=== PATIENT | female | born 1940 | race Caucasian/White ===

== ENCOUNTER → 2017-05-09 | Outpatient (CLI) | payer MEDICARE, BC ==
[2012-03-01 11:10] VITALS: BP 141/72
[~2017-05-09] MED LIST: AFLEXA340 MG; ASPIRIN 81M81 MG/TA2; CIPRO 500MG TA500 MG PO; MELOXICAM; MULTIPLE VITAMI1 CAP; ONDANSETRON4 M1 PO; PEPCID 20MG TAB20 MG PO
== END ==
LOC: LAB 11:09
DX: N30.00 Acute cystitis without hematuria (principal)

== ENCOUNTER → 2017-07-17 | Outpatient (CLI) | payer MEDICARE, BC ==
[2012-03-01 11:10] VITALS: BP 141/72
== END ==
LOC: MAMMO 12:50
DX: Z12.31 Encounter for screening mammogram for malignant neoplasm of breast (principal)
CPT/HCPCS: G0202

== ENCOUNTER → 2017-11-21 | Outpatient (CLI) | payer MEDICARE, BC ==
[2012-03-01 11:10] VITALS: BP 141/72
== END ==
LOC: LAB 10:52
DX: N39.0 Urinary tract infection, site not specified (principal)

== ENCOUNTER → 2018-01-10 | Outpatient (CLI) | payer MEDICARE, BC ==
[2012-03-01 11:10] VITALS: BP 141/72
[2018-01-10 12:34] LABS: URINE WBC >50 /hpf (0-3)
== END ==
LOC: LAB 11:47
PROVIDERS: Nurse Practitioner Family
DX: R30.0 Dysuria (principal); N39.0 Urinary tract infection, site not specified

== ENCOUNTER → 2018-10-08 | Outpatient (CLI) | payer MEDICARE, BC ==
[2012-03-01 11:10] VITALS: BP 141/72
== END ==
LOC: MAMMO 10:45
DX: Z12.31 Encounter for screening mammogram for malignant neoplasm of breast (principal)

== ENCOUNTER → 2018-12-30 | Outpatient (CLI) | payer MEDICARE, BC ==
[2012-03-01 11:10] VITALS: BP 141/72
== END ==
LOC: VAS 16:42 → RAD 16:45
DX: I08.3 Combined rheumatic disorders of mitral, aortic and tricuspid valves (principal)

== ENCOUNTER → 2019-02-03 | Outpatient (CLI) | payer MEDICARE, BC ==
[2012-03-01 11:10] VITALS: BP 141/72
== END ==
LOC: LAB 12:15
DX: R30.0 Dysuria (principal)

== ENCOUNTER → 2019-02-25 | Outpatient (CLI) | payer MEDICARE, BC ==
[2012-03-01 11:10] VITALS: BP 141/72
[2019-02-25 16:02] LABS: URINE APPEARANCE HAZY; URINE BILIRUBIN NEGATIVE (NEGATIVE); URINE BLOOD TRACE (NEGATIVE); URINE COLOR YELLOW; URINE GLUCOSE NEGATIVE (NEGATIVE); URINE KETONE NEGATIVE (NEGATIVE); URINE LEUKOCYTE ESTERASE NEGATIVE (NEGATIVE); URINE NITRATE NEGATIVE (NEGATIVE); URINE PROTEIN(semi-quant) NEGATIVE (NEGATIVE); URINE UROBILINOGEN NORMAL (NORMAL); URINE WBC 0-1 /hpf (0-3)
== END ==
LOC: LAB 15:34
PROVIDERS: Family Medicine
DX: R10.9 Unspecified abdominal pain (principal)

== ENCOUNTER → 2019-02-27 | Outpatient (CLI) | payer MEDICARE, BC ==
[2012-03-01 11:10] VITALS: BP 141/72
== END ==
LOC: RAD 09:00
DX: N39.0 Urinary tract infection, site not specified (principal)

== ENCOUNTER → 2019-05-26 | Day surgery (SDC) | payer MEDICARE, BC ==
[2012-03-01 11:10] VITALS: BP 141/72
== END ==
LOC: MSO 07:22
DX: R19.4 Change in bowel habit (principal); Z80.0 Family history of malignant neoplasm of digestive organs; I10 Essential (primary) hypertension; I05.9 Rheumatic mitral valve disease, unspecified; F41.9 Anxiety disorder, unspecified; M19.90 Unspecified osteoarthritis, unspecified site; Z79.899 Other long term (current) drug therapy; Z79.82 Long term (current) use of aspirin; Z85.038 Personal history of other malignant neoplasm of large intestine; Z85.9 Personal history of malignant neoplasm, unspecified
CPT/HCPCS: 00812; J2704; J7120

== ENCOUNTER → 2019-09-26 | Outpatient (CLI) | payer MEDICARE, BC ==
[~2019-09-26] VITALS: Ht 172.7 cm; Wt 73.2 kg
[~2019-09-26] MED LIST changes: +ALENDRONATE SODI5 MG PO; +ATIVAN0.5 MG PO; +HYDROCHLOROTH12.5 M2 PO; +ULTRAM50 M1 PO; +ZESTRIL5 M1 PO
[2019-09-26 12:04] VITALS: BP 152/82
== END ==
LOC: AMSURD 11:44 → EDSTATUS 14:24
DX: Z51.81 Encounter for therapeutic drug level monitoring (principal); Z79.01 Long term (current) use of anticoagulants
CPT/HCPCS: J1650

== ENCOUNTER → 2019-09-26 | Outpatient (CLI) | payer MEDICARE, BC ==
[2012-03-01 11:10] VITALS: BP 141/72
== END ==
LOC: RAD 09:02
DX: I82.812 Embolism and thrombosis of superficial veins of left lower extremity (principal)

== ENCOUNTER 2019-10-02 11:00 | Outpatient (RCR) | payer MEDICARE, BC ==
[2012-03-01 11:10] VITALS: BP 141/72
== END 2019-10-02 11:30 | disposition still patient (30) ==
LOC: PT 11:00
DX: M54.5 Low back pain (principal); Z87.39 Personal history of other diseases of the musculoskeletal system and connective tissue

== ENCOUNTER → 2020-02-10 | Outpatient (CLI) | payer MEDICARE, BC ==
[2019-09-26 12:04] VITALS: BP 152/82
[2020-02-10 11:52] LABS: EOS # 0.1 (0.04-0.40); EOS % 1.9 % (1.0-5.0); HEMATOCRIT 39.5 % (37.0-47.0); HEMOGLOBIN 13.1 g/dL (12.5-16.0); LYMPH# 2.2 (1.50-4.00); MEAN CELL VOLUME 91 fl (78-100); MEAN CORPUSCULAR HEMOGLOBIN 30 pg (27-31); MEAN CORPUSCULAR HGB CONC 33 g/dL (33-37); MEAN PLATELET VOLUME 10.9 fl (7.4-10.4); MONO # 0.7 (0.20-0.80); NEU # 3.2 (1.40-6.50); PLATELET COUNT 228 K/mm3 (130-400); RED BLOOD COUNT 4.35 M/mm3 (4.10-5.30); RED CELL DISTRIBUTION WIDTH 12.9 % (11.5-14.5); WHITE BLOOD COUNT 6.2 K/mm3 (4.8-10.8)
[2020-02-10 12:02] LABS: ALBUMIN 4.2 g/dL (3.4-4.8); POTASSIUM 4.3 mmol/L (3.5-5.1)
[2020-02-10 12:03] LABS: CALCIUM 9.6 mg/dL (8.3-10.5)
[2020-02-10 12:04] LABS: TOTAL PROTEIN 7.3 g/dL (6.2-8.1)
== END ==
LOC: RAD 11:39
PROVIDERS: Family Medicine
DX: Z00.00 Encounter for general adult medical examination without abnormal findings (principal); M48.061 Spinal stenosis, lumbar region without neurogenic claudication; M51.36 Other intervertebral disc degeneration, lumbar region; M41.86 Other forms of scoliosis, lumbar region; E78.5 Hyperlipidemia, unspecified; E55.9 Vitamin D deficiency, unspecified

== ENCOUNTER → 2020-02-17 | Outpatient (CLI) | payer MEDICARE, BC ==
[2019-09-26 12:04] VITALS: BP 152/82
== END ==
LOC: MAMMO 12:52
DX: Z12.31 Encounter for screening mammogram for malignant neoplasm of breast (principal)

== ENCOUNTER 2020-08-19 03:23 | Emergency (ER) | payer MEDICARE, BC ==
[2020-08-19] MEDS ORDERED: LORAZEPAM0.5 M1 PO (03:34)
[2020-08-19] MEDS ORDERED: HCTZ 25MG25 MG PO (03:34)
[2020-08-19 03:44] LABS: HEMATOCRIT 38.2 % (37.0-47.0); HEMOGLOBIN 12.2 g/dL (12.5-16.0); MEAN CELL VOLUME 92 fl (78-100); MEAN CORPUSCULAR HEMOGLOBIN 29 pg (27-31); MEAN CORPUSCULAR HGB CONC 32 g/dL (33-37); MEAN PLATELET VOLUME 10.5 fl (7.4-10.4); PLATELET COUNT 218 K/mm3 (130-400); RED BLOOD COUNT 4.15 M/mm3 (4.10-5.30); RED CELL DISTRIBUTION WIDTH 13.1 % (11.5-14.5); WHITE BLOOD COUNT 6.4 K/mm3 (4.8-10.8)
[2020-08-19 03:59] LABS: ALBUMIN 3.8 g/dL (3.4-4.8); POTASSIUM 3.7 mmol/L (3.5-5.1)
[2020-08-19 04:00] LABS: CALCIUM 9.4 mg/dL (8.3-10.5)
[2020-08-19 04:01] LABS: TOTAL PROTEIN 6.6 g/dL (6.2-8.1)
[2020-08-19 04:03] LABS: TOTAL BILIRUBIN 0.7 mg/dL (0.2-1.2)
[2020-08-19 04:26] LABS: PARTIAL THROMBOPLASTIN TIME 23.6 SECONDS (21.0-32.0); PROTHROMBIN TIME 9.4 SECONDS (9.0-12.0)
[2020-08-19 04:27] LABS: LYMPHOCYTE 44 % (20-51); MONOCYTE 12 % (3-10); NEUTROPHILS 36 % (42-75)
[2020-08-19 06:02] LABS: URINE APPEARANCE CLEAR; URINE BILIRUBIN NEGATIVE (NEGATIVE); URINE BLOOD NEGATIVE (NEGATIVE); URINE COLOR YELLOW; URINE GLUCOSE NEGATIVE (NEGATIVE); URINE KETONE NEGATIVE (NEGATIVE); URINE LEUKOCYTE ESTERASE NEGATIVE (NEGATIVE); URINE NITRATE NEGATIVE (NEGATIVE); URINE PROTEIN(semi-quant) NEGATIVE (NEGATIVE); URINE UROBILINOGEN NORMAL (NORMAL)
[2020-08-19 07:50] VITALS: BP 125/68
== END 2020-08-19 07:50 | disposition home or self-care (01) ==
LOC: ED 03:23
PROVIDERS: Nurse Practitioner
DX: R07.89 Other chest pain (principal); Z87.442 Personal history of urinary calculi; Z90.710 Acquired absence of both cervix and uterus

== ENCOUNTER → 2021-02-22 | Outpatient (CLI) | payer MEDICARE, BC ==
[~2021-02-22] MED LIST changes: +HCTZ 25MG25 MG PO; +LORAZEPAM0.5 M1 PO
== END ==
LOC: MAMMO 12:56
DX: Z12.31 Encounter for screening mammogram for malignant neoplasm of breast (principal)

== ENCOUNTER → 2021-02-22 | Outpatient (CLI) | payer MEDICARE, BC | LOC: RAD 13:00 | DX: Z13.820 Encounter for screening for osteoporosis (principal); M81.0 Age-related osteoporosis without current pathological fracture ==

== ENCOUNTER → 2021-03-08 | Outpatient (CLI) | payer MEDICARE, BC ==
[2021-03-08 14:26] LABS: BASO # 0.03 (0.02-0.10); EOS # 0.12 (0.04-0.40); EOS % 2.2 % (1.0-5.0); HEMATOCRIT 40.8 % (37.0-47.0); HEMOGLOBIN 13.4 g/dL (12.5-16.0); MEAN CELL VOLUME 93 fl (78-100); MEAN CORPUSCULAR HEMOGLOBIN 31 pg (27-31); MEAN CORPUSCULAR HGB CONC 33 g/dL (33-37); MEAN PLATELET VOLUME 10.6 fl (7.4-10.4); MONO # 0.63 (0.20-0.80); NEU # 2.18 (1.40-6.50); PLATELET COUNT 239 K/mm3 (130-400); RED CELL DISTRIBUTION WIDTH 12.4 % (11.5-14.5); WHITE BLOOD COUNT 5.5 K/mm3 (4.8-10.8)
[2021-03-08 14:37] LABS: POTASSIUM 4.5 mmol/L (3.5-5.1)
[2021-03-08 14:38] LABS: CALCIUM 9.8 mg/dL (8.3-10.5)
[2021-03-08 14:40] LABS: TOTAL PROTEIN 7.5 g/dL (6.2-8.1)
[2021-03-08 14:42] LABS: TOTAL BILIRUBIN 1.3 mg/dL (0.2-1.2)
== END ==
LOC: LAB 14:03
PROVIDERS: Family Medicine
DX: Z00.00 Encounter for general adult medical examination without abnormal findings (principal); E78.5 Hyperlipidemia, unspecified

== ENCOUNTER → 2021-03-10 | Outpatient (CLI) | payer MEDICARE, BC | LOC: VAS 13:00 → RAD 13:00 | DX: I34.0 Nonrheumatic mitral (valve) insufficiency (principal) ==

== ENCOUNTER 2022-02-21 09:45 | Emergency (ER) | payer MEDICARE, BC ==
[~2022-02-21] VITALS: Ht 170.2 cm; Wt 73.2 kg
[2022-02-21] MEDS ORDERED: TRAMADOL 50 MG TAB PO (11:58)
[2022-02-21 12:10] VITALS: BP 110/64
== END 2022-02-21 12:12 | disposition home or self-care (01) ==
LOC: ED 09:45
DX: M25.552 Pain in left hip (principal)

== ENCOUNTER → 2022-02-24 | Outpatient (CLI) | payer MEDICARE, BC ==
[~2022-02-24] MED LIST changes: +TRAMADOL 50 MG TAB PO
[2022-02-24 11:51] LABS: BASO # 0.03 K/mm3 (0.02-0.10); EOS # 0.08 K/mm3 (0.04-0.40); EOS % 1.3 % (1.0-5.0); HEMATOCRIT 36.2 % (37.0-47.0); HEMOGLOBIN 11.8 g/dL (12.5-16.0); LYMPH# 2.17 K/mm3 (1.50-4.00); MEAN CELL VOLUME 94 fl (78-100); MEAN CORPUSCULAR HEMOGLOBIN 31 pg (27-31); MEAN CORPUSCULAR HGB CONC 33 g/dL (33-37); MEAN PLATELET VOLUME 11.5 fl (7.4-10.4); MONO # 0.55 K/mm3 (0.20-0.80); NEU # 3.27 K/mm3 (1.40-6.50); PLATELET COUNT 217 K/mm3 (130-400); RED BLOOD COUNT 3.87 M/mm3 (4.10-5.30); RED CELL DISTRIBUTION WIDTH 12.4 % (11.5-14.5); WHITE BLOOD COUNT 6.1 K/mm3 (4.8-10.8)
[2022-02-24 12:18] LABS: ALBUMIN 3.8 g/dL (3.4-4.8); POTASSIUM 4.4 mmol/L (3.5-5.1)
[2022-02-24 12:19] LABS: CALCIUM 9.7 mg/dL (8.3-10.5)
[2022-02-24 12:21] LABS: TOTAL PROTEIN 6.9 g/dL (6.2-8.1)
[2022-02-24 12:22] LABS: TOTAL BILIRUBIN 2.4 mg/dL (0.2-1.2)
[2022-02-24 12:32] LABS: D-DIMER 0.77 mg/L FEU (0.15-0.50)
== END ==
LOC: LAB 10:09 → VAS 10:09
PROVIDERS: Family Medicine
DX: R79.1 Abnormal coagulation profile (principal); M25.552 Pain in left hip
CPT/HCPCS: Q9967

== ENCOUNTER → 2022-03-14 | Outpatient (CLI) | payer MEDICARE, BC | LOC: MAMMO 14:14 | DX: Z12.31 Encounter for screening mammogram for malignant neoplasm of breast (principal) ==

== ENCOUNTER → 2022-03-14 | Outpatient (CLI) | payer MEDICARE, BC ==
[2022-03-14 14:25] LABS: BASO # 0.01 K/mm3 (0.02-0.10); EOS # 0.12 K/mm3 (0.04-0.40); EOS % 2.1 % (1.0-5.0); HEMATOCRIT 40.3 % (37.0-47.0); HEMOGLOBIN 13.1 g/dL (12.5-16.0); LYMPH# 2.98 K/mm3 (1.50-4.00); MEAN CELL VOLUME 95 fl (78-100); MEAN CORPUSCULAR HEMOGLOBIN 31 pg (27-31); MEAN CORPUSCULAR HGB CONC 33 g/dL (33-37); MEAN PLATELET VOLUME 10.2 fl (7.4-10.4); MONO # 0.59 K/mm3 (0.20-0.80); NEU # 1.94 K/mm3 (1.40-6.50); PLATELET COUNT 247 K/mm3 (130-400); RED BLOOD COUNT 4.24 M/mm3 (4.10-5.30); RED CELL DISTRIBUTION WIDTH 12.9 % (11.5-14.5); WHITE BLOOD COUNT 5.6 K/mm3 (4.8-10.8)
[2022-03-14 14:38] LABS: POTASSIUM 3.8 mmol/L (3.5-5.1)
[2022-03-14 14:39] LABS: CALCIUM 9.9 mg/dL (8.3-10.5)
[2022-03-14 14:40] LABS: TOTAL PROTEIN 7.1 g/dL (6.2-8.1)
[2022-03-14 14:42] LABS: TOTAL BILIRUBIN 1.4 mg/dL (0.2-1.2)
== END ==
LOC: LAB 14:10
PROVIDERS: Family Medicine
DX: Z00.00 Encounter for general adult medical examination without abnormal findings (principal); Z12.39 Encounter for other screening for malignant neoplasm of breast; E78.5 Hyperlipidemia, unspecified; E55.9 Vitamin D deficiency, unspecified; M19.90 Unspecified osteoarthritis, unspecified site; I10 Essential (primary) hypertension; E66.9 Obesity, unspecified; M81.0 Age-related osteoporosis without current pathological fracture; R42 Dizziness and giddiness

== ENCOUNTER → 2022-06-07 | Outpatient (CLI) | payer MEDICARE, BC ==
[2022-06-07 10:48] LABS: BASO # 0.02 K/mm3 (0.02-0.10); EOS # 0.08 K/mm3 (0.04-0.40); EOS % 1.5 % (1.0-5.0); HEMATOCRIT 40.6 % (37.0-47.0); HEMOGLOBIN 13.6 g/dL (12.5-16.0); LYMPH# 1.99 K/mm3 (1.50-4.00); MEAN CELL VOLUME 92 fl (78-100); MEAN CORPUSCULAR HEMOGLOBIN 31 pg (27-31); MEAN CORPUSCULAR HGB CONC 34 g/dL (33-37); MEAN PLATELET VOLUME 10.4 fl (7.4-10.4); MONO # 0.66 K/mm3 (0.20-0.80); NEU # 2.65 K/mm3 (1.40-6.50); PLATELET COUNT 235 K/mm3 (130-400); RED BLOOD COUNT 4.42 M/mm3 (4.10-5.30); WHITE BLOOD COUNT 5.4 K/mm3 (4.8-10.8)
[2022-06-07 10:55] LABS: ALBUMIN 3.9 g/dL (3.4-4.8)
[2022-06-07 10:56] LABS: POTASSIUM 4.3 mmol/L (3.5-5.1)
[2022-06-07 10:57] LABS: CALCIUM 9.8 mg/dL (8.3-10.5)
[2022-06-07 10:58] LABS: TOTAL PROTEIN 7.1 g/dL (6.2-8.1)
[2022-06-07 11:07] LABS: URINE APPEARANCE CLEAR; URINE BILIRUBIN NEGATIVE (NEGATIVE); URINE BLOOD NEGATIVE (NEGATIVE); URINE COLOR YELLOW; URINE GLUCOSE NEGATIVE (NEGATIVE); URINE KETONE NEGATIVE (NEGATIVE); URINE LEUKOCYTE ESTERASE NEGATIVE (NEGATIVE); URINE NITRATE NEGATIVE (NEGATIVE); URINE PROTEIN(semi-quant) TRACE (NEGATIVE); URINE UROBILINOGEN NORMAL (NORMAL)
== END ==
LOC: LAB 10:23
PROVIDERS: Internal Medicine Nephrology
DX: N18.32 Chronic kidney disease, stage 3b (principal); I10 Essential (primary) hypertension; E66.9 Obesity, unspecified

== ENCOUNTER → 2024-01-30 | Outpatient (CLI) | payer MEDICARE, BC | LOC: RAD 06:40 | DX: R19.00 Intra-abdominal and pelvic swelling, mass and lump, unspecified site (principal) ==

== ENCOUNTER → 2024-04-02 | Outpatient (CLI) | payer MEDICARE, BC | LOC: RAD 09:57 | DX: M18.9 Osteoarthritis of first carpometacarpal joint, unspecified (principal) ==

== ENCOUNTER → 2024-04-07 | Outpatient (CLI) | payer MEDICARE, BC | LOC: MAMMO 10:06 | DX: Z12.31 Encounter for screening mammogram for malignant neoplasm of breast (principal) ==

== ENCOUNTER → 2024-04-07 | Outpatient (CLI) | payer MEDICARE, BC ==
[2024-04-07 12:51] LABS: BASO # 0.01 K/mm3 (0.02-0.10); EOS # 0.05 K/mm3 (0.04-0.40); EOS % 0.7 % (1.0-5.0); HEMATOCRIT 46.9 % (37.0-47.0); HEMOGLOBIN 15.3 g/dL (12.5-16.0); LYMPH# 2.34 K/mm3 (1.50-4.00); MEAN CELL VOLUME 94 fl (78-100); MEAN CORPUSCULAR HEMOGLOBIN 31 pg (27-31); MEAN CORPUSCULAR HGB CONC 33 g/dL (33-37); MEAN PLATELET VOLUME 10.7 fl (7.4-10.4); NEU # 3.74 K/mm3 (1.40-6.50); PLATELET COUNT 200 K/mm3 (130-400); RED BLOOD COUNT 4.97 M/mm3 (4.10-5.30); RED CELL DISTRIBUTION WIDTH 13.3 % (11.5-14.5); WHITE BLOOD COUNT 6.7 K/mm3 (4.8-10.8)
[2024-04-07 12:56] LABS: ALBUMIN 4.3 g/dL (3.4-4.8)
[2024-04-07 12:57] LABS: CALCIUM 10.4 mg/dL (8.3-10.5)
[2024-04-07 12:59] LABS: TOTAL PROTEIN 7.4 g/dL (6.2-8.1)
[2024-04-07 13:00] LABS: TOTAL BILIRUBIN 1.9 mg/dL (0.2-1.2)
== END ==
LOC: LAB 12:35
PROVIDERS: Family Medicine
DX: E78.5 Hyperlipidemia, unspecified (principal); I10 Essential (primary) hypertension; E55.9 Vitamin D deficiency, unspecified

== ENCOUNTER 2024-08-04 08:46 | Emergency (ER) | payer MEDICARE, BC ==
[~2024-08-04] VITALS: Ht 167.6 cm; Wt 71.4 kg
[2024-08-04] MEDS ORDERED: ADULT LOW DOSE81 MG PO (09:12)
[2024-08-04 09:14] LABS: BASO # 0.02 K/mm3 (0.02-0.10); EOS # 0.07 K/mm3 (0.04-0.40); EOS % 0.9 % (1.0-5.0); HEMATOCRIT 44.5 % (37.0-47.0); HEMOGLOBIN 14.7 g/dL (12.5-16.0); LYMPH# 1.54 K/mm3 (1.50-4.00); MEAN CELL VOLUME 95 fl (78-100); MEAN CORPUSCULAR HEMOGLOBIN 31 pg (27-31); MEAN CORPUSCULAR HGB CONC 33 g/dL (33-37); MEAN PLATELET VOLUME 10.6 fl (7.4-10.4); MONO # 0.97 K/mm3 (0.20-0.80); NEU # 4.94 K/mm3 (1.40-6.50); PLATELET COUNT 192 K/mm3 (130-400); RED BLOOD COUNT 4.71 M/mm3 (4.10-5.30); RED CELL DISTRIBUTION WIDTH 12.9 % (11.5-14.5); WHITE BLOOD COUNT 7.6 K/mm3 (4.8-10.8)
[2024-08-04 09:20] LABS: ALBUMIN 4.1 g/dL (3.4-4.8)
[2024-08-04 09:22] LABS: CALCIUM 9.6 mg/dL (8.3-10.5)
[2024-08-04 09:23] LABS: TOTAL PROTEIN 7.1 g/dL (6.2-8.1)
[2024-08-04 09:56] LABS: PROTHROMBIN TIME 10.5 SECONDS (9.0-12.0)
[2024-08-04] MEDS ORDERED: dilTIAZem 25 MG/5 ML VIAL IV ONE (11:45)
[2024-08-04 13:29] VITALS: BP 124/76
== END 2024-08-04 13:31 | disposition short-term general hospital (02) ==
LOC: ED 08:46
PROVIDERS: Physician Assistant
DX: I48.91 Unspecified atrial fibrillation (principal); Z79.82 Long term (current) use of aspirin; Z82.41 Family history of sudden cardiac death